=== PATIENT | male | born 1980 | race Caucasian/White ===

== ENCOUNTER → 2023-01-06 | Outpatient (REF) | payer BC | LOC: M WUC 21:29 | PROVIDERS: ATTEND Nurse Practitioner Family | DX: R31.0 Gross hematuria (principal) ==

== ENCOUNTER 2023-07-30 10:40 | Emergency (ER) | payer BC ==
[~2023-07-30] VITALS: Ht 162.6 cm; Wt 83.0 kg
[2023-07-30] MEDS ORDERED: PANT20TA6 (10:52)
[2023-07-30] MEDS ORDERED: CIPR-249 (10:52)
[2023-07-30] MEDS ORDERED: ALBU8.5H (10:52)
[2023-07-30] MEDS ORDERED: ONDA4TAB6 (10:52)
[2023-07-30] MEDS ORDERED: LISI10TA22 (10:52)
[2023-07-30] MEDS ORDERED: FLUT1BLS5 (10:52)
[2023-07-30] MEDS ORDERED: HYDR-4571 (10:52)
[2023-07-30] MEDS ORDERED: FLOM0.4C39 (10:52)
[2023-07-30] MEDS ORDERED: IBUP-1022 (10:52)
[2023-07-30] MEDS ORDERED: MELO15TA28 (10:52)
[2023-07-30 11:48] LABS: BASO # 0.1 10^3/uL (0.0-0.2); BASO % 0.9 % (0.0-1.0); EOS # 0.2 10^3/uL (0.0-0.5); EOS % 1.9 % (0.0-3.0); HEMATOCRIT 49.2 % (42.0-52.0); HEMOGLOBIN 16.7 g/dl (13.5-17.5); LYMPH # 2.4 10^3/uL (1.5-5.0); LYMPH % 18.6 % (24.0-44.0); MEAN CORPUSCULAR HEMOGLOBIN 29.5 pg (27.0-33.0); MEAN CORPUSCULAR HGB CONC 33.9 g/dl (32.0-36.5); MEAN CORPUSCULAR VOLUME 86.9 fl (80.0-96.0); MONO # 1.2 10^3/uL (0.0-0.8); MONO % 9.1 % (2.0-8.0); NEUTROPHILS # 8.9 10^3/uL (1.5-8.5); NEUTROPHILS % 68.9 % (36.0-66.0); PLATELET COUNT, AUTOMATED 345 10^3/uL (150-450); RED BLOOD COUNT 5.66 10^6/uL (4.30-6.10); WHITE BLOOD COUNT 12.9 10^3/uL (4.0-10.0)
[2023-07-30 12:20] LABS: ALBUMIN 3.8 G/DL (3.2-5.2); BILIRUBIN,DIRECT 0.2 MG/DL (<0.4); BILIRUBIN,TOTAL 0.6 MG/DL (0.3-1.2); TOTAL PROTEIN 6.3 G/DL (5.7-8.2)
[2023-07-30] MEDS ORDERED: NS 1,000 ML IV ONE (12:35)
[2023-07-30] MEDS ORDERED: KETOROLAC 30 MG/ML 1ML VIAL IV ONE (12:45)
[2023-07-30] MEDS ORDERED: ONDANSETRON 4MG 2ML VIAL IV ONE (13:00)
[2023-07-30 14:34] VITALS: BP 112/74; TEMP 97.1; O2SAT 99
[2023-07-30] MEDS ORDERED: KETO10TAB PO (14:42)
[2023-07-30] MEDS ORDERED: PROM25TA12 PO (14:42)
== END 2023-07-30 15:03 | disposition home or self-care (01) ==
LOC: M ED 10:40
DX: N20.0 Calculus of kidney (principal); N23 Unspecified renal colic; I10 Essential (primary) hypertension; K21.9 Gastro-esophageal reflux disease without esophagitis; M19.90 Unspecified osteoarthritis, unspecified site; Z87.442 Personal history of urinary calculi; Z79.52 Long term (current) use of systemic steroids; Z79.811 Long term (current) use of aromatase inhibitors; Z79.83 Long term (current) use of bisphosphonates; Z79.899 Other long term (current) drug therapy
CPT/HCPCS: 74176; 80047; 80076; 81001; 83690; 85025; 87086; 96361; 96374; 99284; J1885; J2405

== ENCOUNTER 2024-04-01 22:50 | Inpatient (IN) | payer BC, SELFPAY ==
[~2024-04-01] VITALS: Ht 162.6 cm; Wt 82.7 kg
[~2024-04-01 22:50] MED LIST: ALBU8.5H INH; CIPR-249; FLOM0.4C39 PO; FLUT1BLS5 INH; HYDR-4571; IBUP-1022; KETO10TAB PO; LISI10TA22 PO; MELO15TA28 PO; ONDA-282; PANT20TA6 PO; PROM25TA12 PO
[2024-04-02] VITALS (7 sets, daily range): BP systolic 97–149; BP diastolic 53–94; TEMP 97.3–97.7; O2SAT 93–99
[2024-04-02] MEDS ORDERED: NORCO, ANEXSIA 5/325MG TABLET (HYDROcodone/ACETAMINOPHEN) PO PRN (01:30)
[2024-04-02] MEDS ORDERED: HYDROMORPHONE HCL 0.5 MG/ 0.5 ML SYRINGE IV PRN (01:30)
[2024-04-02] MEDS ORDERED: ACETAMINOPHEN TAB 650MG DOSE (2X325MG) PO PRN (01:30)
[2024-04-02] MEDS ORDERED: UNRESOLVED CLARIFICATION ENTRY XX STA (01:40)
[2024-04-02] MEDS ORDERED: ONDANSETRON 4MG 2ML VIAL IV PRN (02:10)
[2024-04-02] MEDS: NS 1,000 ML IV SCH ×2 (02:14→10:48)
[2024-04-02] MEDS: cefTRIAXone SOD 1 GM in D5W MINI-BAG PLUS 50 ML IV SCH (03:14)
[2024-04-02] MEDS ORDERED: CYCL5TAB PO (05:37)
[2024-04-02] MEDS ORDERED: HOME MED LIST COMPLETE! XX SCH (05:40)
[2024-04-02 07:10] LABS: BASO # 0.1 10^3/uL (0.0-0.2); BASO % 0.6 % (0.0-1.0); EOS # 0.3 10^3/uL (0.0-0.5); EOS % 2.3 % (0.0-3.0); HEMATOCRIT 45.6 % (42.0-52.0); HEMOGLOBIN 15.2 g/dl (13.5-17.5); LYMPH # 1.6 10^3/uL (1.5-5.0); LYMPH % 13.6 % (24.0-44.0); MEAN CORPUSCULAR HEMOGLOBIN 29.3 pg (27.0-33.0); MEAN CORPUSCULAR HGB CONC 33.3 g/dl (32.0-36.5); MONO # 1.4 10^3/uL (0.0-0.8); MONO % 11.9 % (2.0-8.0); NEUTROPHILS # 8.4 10^3/uL (1.5-8.5); NEUTROPHILS % 70.9 % (36.0-66.0); PLATELET COUNT, AUTOMATED 293 10^3/uL (150-450); RED BLOOD COUNT 5.18 10^6/uL (4.30-6.10); WHITE BLOOD COUNT 11.8 10^3/uL (4.0-10.0)
[2024-04-02] MEDS ORDERED: MORPHINE 4 MG/ML 1ML VIAL IV PRN (07:25)
[2024-04-02] MEDS: DOCUSATE SODIUM 100MG CAPSULE PO SCH (08:19)
[2024-04-02] MEDS: TAMSULOSIN 0.4 MG CAP PO SCH (08:19)
[2024-04-02] MEDS: MORPHINE 2 MG/ML 1ML VIAL IV PRN (08:22)
[2024-04-02 08:23] LABS: INR 0.98; PARTIAL THROMBOPLASTIN TIME 27.3 SECONDS (24.8-34.2); PROTHROMBIN TIME 12.7 SECONDS (12.5-14.5)
[2024-04-02 08:35] LABS: ALBUMIN 3.4 G/DL (3.2-5.2); ALKALINE PHOSPHATASE 87 U/L (46-116); ALT/SGPT 30 U/L (7.0-40); AST/SGOT 22 U/L (<34); BILIRUBIN,TOTAL 0.9 MG/DL (0.3-1.2); BLOOD UREA NITROGEN 19 MG/DL (9-23); CALCIUM LEVEL 8.6 MG/DL (8.5-10.1); CARBON DIOXIDE LEVEL 24 MMOL/L (20-31); CHLORIDE LEVEL 111 MMOL/L (98-107); CREATININE FOR GFR 0.97 MG/DL (0.70-1.30); GLOMERULAR FILTRATION RATE > 60.0 (>60); GLUCOSE, FASTING 84 MG/DL (60-100); POTASSIUM SERUM 4.3 MMOL/L (3.5-5.1); SODIUM LEVEL 142 MMOL/L (136-145); TOTAL PROTEIN 5.7 G/DL (5.7-8.2)
[2024-04-02] MEDS ORDERED: LIDOCAINE 2% 100MG/5ML SDV (FOR ANES.) As Ordered ONE (11:57)
[2024-04-02] MEDS ORDERED: MIDAZOLAM INJ 2MG/2ML VIAL As Ordered ONE (11:57)
[2024-04-02] MEDS ORDERED: fentaNYL 100 MCG/2 ML INJECTION As Ordered ONE (11:57)
[2024-04-02] MEDS ORDERED: propofoL 200 MG/20 ML VIAL As Ordered ONE (11:57)
[2024-04-02] MEDS: LIDOCAINE 2% 5ML JELLY UROJET As Ordered ONE (12:00)
[2024-04-02] MEDS: ISOVUE-300 61% 100ML VIAL As Ordered ONE (12:01)
[2024-04-02] MEDS ORDERED: OXYB5TAB14 PO (15:14)
[2024-04-02] MEDS ORDERED: PYRI1TAB5 PO (15:14)
[2024-04-02] MEDS ORDERED: ACET1TAB55 PO (15:14)
[2024-04-02] MEDS ORDERED: BACT800T5 PO (15:14)
== END 2024-04-02 16:00 | disposition home or self-care (01) | DRG 465 ==
LOC: M MS5PR 04-02 00:10
PROVIDERS: ADMIT Preventive Medicine Undersea and Hyperbaric Medicine; ATTEND Preventive Medicine Undersea and Hyperbaric Medicine
PROC: 0T767DZ Dilation of Right Ureter with Intraluminal Device, Via Natural or Artificial Opening (ICD-10-PCS; principal; 2024-04-02 11:08)
DX: N13.2 Hydronephrosis with renal and ureteral calculous obstruction (principal); N39.0 Urinary tract infection, site not specified; I10 Essential (primary) hypertension; Z88.8 Allergy status to other drugs, medicaments and biological substances; Z79.899 Other long term (current) drug therapy; J42 Unspecified chronic bronchitis

== ENCOUNTER → 2024-04-05 | Outpatient (CLI) | payer BC ==
[~2024-04-05] MED LIST changes: +ACET1TAB55 PO; +BACT800T5 PO; +CYCL5TAB PO; +OXYB5TAB14 PO; +PYRI1TAB5 PO
== END ==
LOC: M EKG 11:05
PROVIDERS: ATTEND Urology
DX: N20.1 Calculus of ureter (principal)

== ENCOUNTER 2024-04-14 09:11 | Day surgery (SDC) | payer BC ==
[~2024-04-14] VITALS: Ht 162.6 cm; Wt 84.5 kg
[2024-04-14] MEDS: LR 1,000 ML IV SCH (10:15)
[2024-04-14] MEDS ORDERED: fentaNYL 100 MCG/2 ML INJECTION As Ordered ONE (10:34)
[2024-04-14] MEDS ORDERED: LIDOCAINE 2% 100MG/5ML SDV (FOR ANES.) As Ordered ONE (10:35)
[2024-04-14] MEDS ORDERED: ACETAMINOPHEN 1000MG 100ML IV BAG As Ordered ONE (10:35)
[2024-04-14] MEDS ORDERED: MIDAZOLAM INJ 2MG/2ML VIAL As Ordered ONE (10:35)
[2024-04-14] MEDS ORDERED: ONDANSETRON 4MG 2ML VIAL As Ordered ONE (10:35)
[2024-04-14] MEDS ORDERED: propofoL 200 MG/20 ML VIAL As Ordered ONE (10:35)
[2024-04-14] MEDS: ceFAZolin SOD 2 GM in IV 1 EA IV ONE (11:09)
[2024-04-14] MEDS ORDERED: BACT800T5 PO (11:32)
[2024-04-14] MEDS ORDERED: ONDANSETRON 4MG 2ML VIAL IV PRN (12:00)
[2024-04-14] MEDS ORDERED: fentaNYL 100 MCG/2 ML INJECTION IV PRN (12:00)
[2024-04-14] MEDS ORDERED: oxyCODONE 5MG TAB PO PRN (12:00)
[2024-04-14 13:30] VITALS: BP 128/75; TEMP 97.7; O2SAT 98
== END 2024-04-14 13:42 | disposition home or self-care (01) ==
LOC: M SDC 09:11
PROVIDERS: ATTEND Urology
DX: N20.1 Calculus of ureter (principal); I10 Essential (primary) hypertension; Z79.899 Other long term (current) drug therapy; Z87.442 Personal history of urinary calculi; Z79.1 Long term (current) use of non-steroidal anti-inflammatories (NSAID)
CPT/HCPCS: 50590; 74018; J0131; J0690; J2250; J2405; J3010

== ENCOUNTER → 2024-05-09 | Outpatient (CLI) | payer BC | LOC: M RAD 10:59 | PROVIDERS: ATTEND Urology | DX: N20.0 Calculus of kidney (principal) ==

== ENCOUNTER → 2024-05-11 | Outpatient (REF) | payer BC ==
[2024-05-11 13:38] LABS: APPEARANCE, URINE HAZY (CLEAR); BACTERIA, URINE AUTO NEGATIVE (NEGATIVE); BILIRUBIN, URINE AUTO NEGATIVE (NEGATIVE); BLOOD, URINE BLOOD NEGATIVE (NEGATIVE); CALCIUM OXALATE CRYSTALS SMALL; COLOR, URINE YELLOW (YELLOW); GLUCOSE, URINE (UA) AUTO NEGATIVE (NEGATIVE); KETONE, URINE AUTO NEGATIVE (NEGATIVE); LEUKOCYTE ESTERASE, URINE AUTO NEGATIVE (NEGATIVE); MUCUS, URINE SMALL (NEGATIVE); NITRITE, URINE AUTO NEGATIVE (NEGATIVE); PROTEIN, URINE AUTO NEGATIVE (NEGATIVE); RBC, URINE AUTO 1 /HPF (0-3); SPECIFIC GRAVITY URINE AUTO 1.028 (1.002-1.035); SQUAMOUS EPITHELIAL CELL UR AU 0 /HPF (0-6); UROBILINOGEN, URINE AUTO 0.2 mg/dL (0.0-2.0); WBC, URINE AUTO 1 /HPF (0-3)
== END ==
LOC: M SMT 12:46
PROVIDERS: ATTEND Urology
DX: N20.0 Calculus of kidney (principal)

== ENCOUNTER → 2024-11-28 | Outpatient (REF) | payer BC ==
[~2024-11-28] MED LIST changes: -CYCL5TAB PO; +CYCL5TAB4 PO
== END ==
LOC: M SMT 17:16
PROVIDERS: ATTEND Urology
DX: Z96.0 Presence of urogenital implants (principal)